=== PATIENT | male | born 1975 | race African-American/Black ===

== ENCOUNTER 2016-10-01 09:11 | Emergency (ER) | payer SELFPAY ==
[~2016-10-01] VITALS: Ht 175.3 cm; Wt 80.0 kg
[~2016-10-01 09:11] MED LIST: HYDR-3533 PO; LISI-593 PO
[2016-10-01 09:12] VITALS: BP 136/97; PULSE 60; RESP 15; TEMP 98.1; O2SAT 99
[2016-10-01] MEDS ORDERED: LISI-515 PO (09:24)
--- NOTE | 2016-10-01 09:25 | PD ---
HPI Chief Complaint: Pain: Acute or Chronic Time Seen by Provider: 09:25 Travel History International Travel<30 days: No Contact w/Intl Traveler<30days: No Traveled to known affect area: No History of Present Illness HPI 41-year-old male came to the emergency room with history of right wrist and forearm pain that has been there for past 1 year however for past 1 week it has been excruciatingly painful. He has noticed some swelling. He's been taking care of it at home by taking ibuprofen 800 mg, icing and elevating it and even bought a splint from the pharmacy and has been applying it for past 5 days. However now the pain is severe and he cannot think of anything else and hence came to the emergency room. History of fever or trauma. He does do yard work although he hasn't worked in past 5 days because of the pain. Vital signs were relatively stable. [facility] Past Medical History Narrative Medical List of his past medical, surgical, social and family history was reviewed from the nursing note. Diminished Hearing: No Gastrointestinal Disorders: Yes Genitourinary: No Hypertension: Yes Medical other: Yes (HX GI BLEEDING - 3 YRS AGO) Musculoskeletal: No Neurologic: No Reproductive: No Respiratory: No Tetanus Vaccination: > 5 Years Influenza Vaccination: No Past Surgical History Pacemaker: No Other Surgery: Yes (R. ACHILLES TENDON REPAIR AFTER RUPTURE) Social History Alcohol Use: No Tobacco Use: No Substance Use: Yes (MARIJUANA) Allergies-Medications (Allergen,Severity, Reaction): Coded Allergies: No Known Allergies (Verified , 10/01/16) Comments List of his allergies reviewed from the nursing note. Reported Meds & Prescriptions Reported Meds & Active Scripts Active Medrol Dosepak (Methylprednisolone) 4 Mg Dspk 4 Mg PO DIRECTED Per Pharmacist direction Keflex (Cephalexin) 500 Mg Cap 500 Mg PO Q8H Reported Lisinopril 20 Mg Tab 20 Mg PO DAILY Narrative Medication List of his home medications reviewed from the nursing note. Review of Systems Except as stated in HPI: all other systems reviewed are Neg Physical Exam Narrative GENERAL: Awake, alert, moderate to significant distress, severe halitosis SKIN: Focused skin assessment warm/dry. HEAD: Atraumatic. Normocephalic. EYES: Pupils equal and round. No scleral icterus. No injection or drainage. ENT: No nasal bleeding or discharge. Mucous membranes pink and moist. NECK: Trachea midline. No JVD. CARDIOVASCULAR: Regular rate and rhythm. No murmur appreciated. RESPIRATORY: No accessory muscle use. Clear to auscultation. Breath sounds equal bilaterally. GASTROINTESTINAL: Abdomen soft, non-tender, nondistended. Hepatic and splenic margins not palpable. MUSCULOSKELETAL: No obvious deformities. No clubbing. No cyanosis. No edema. Radial pulses present. Swelling at the wrist joint as well as the rest of the hand and fingers. Significant restriction of the range of motion at the wrist joint especially pronation and supination. Tenderness at the ulnar aspect of the wrist. NEUROLOGICAL: Awake and alert. No obvious cranial nerve deficits. Motor grossly within normal limits. Normal speech. PSYCHIATRIC: Appropriate mood and affect; insight and judgment normal. Data Data Last Documented VS Vital Signs Date Time Temp Pulse Resp B/P Pulse Ox O2 Delivery O2 Flow Rate FiO2 10/01/16 12:20 55 16 134/81 98 Room Air 10/01/16 09:12 98.1 Orders Wrist, Complete (Bye0dhu) (10/01/16 ) Forearm (2vws) (10/01/16 ) Acetamin-Hydrocod 325-5 Mg ([place] 5-325 (10/01/16 09:45) Ketorolac Inj (Toradol Inj) (10/01/16 09:45) Mri Joint Wrist W&W/O Contrast (10/01/16 ) Complete Blood Count With Diff (10/01/16 10:34) Basic Metabolic Panel (Bmp) (10/01/16 10:34) C-Reactive Protein (Crp) (10/01/16 10:34) Westergren Sedimentation Rate (10/01/16 10:34) ^ Saline Lock (10/01/16 10:34) Sodium Chlor 0.9% 1000 Ml Inj (Ns 1000 M (10/01/16 12:00) Cefazolin Inj (Ancef Inj) (10/01/16 12:00) Blood Culture (10/01/16 11:49) Gadodiamide Pf Inj (Omniscan Pf Inj) (10/01/16 13:27) Splint Or Brace Apply/Monitor (10/01/16 15:20) Fiberglass Splint Forearm Adul (10/01/16 ) Labs Laboratory Tests Test 10/01/16 10:50 White Blood Count 10.0 TH/MM3 Red Blood Count 4.53 MIL/MM3 Hemoglobin 12.5 GM/DL Hematocrit 36.2 % Mean Corpuscular Volume 79.8 FL Mean Corpuscular Hemoglobin 27.5 PG Mean Corpuscular Hemoglobin 34.4 % Concent Red Cell Distribution Width 13.9 % Platelet Count 160 TH/MM3 Mean Platelet Volume 9.0 FL Neutrophils (%) (Auto) 69.4 % Lymphocytes (%) (Auto) 20.5 % Monocytes (%) (Auto) 7.1 % Eosinophils (%) (Auto) 2.5 % Basophils (%) (Auto) 0.5 % Neutrophils # (Auto) 6.9 TH/MM3 Lymphocytes # (Auto) 2.1 TH/MM3 Monocytes # (Auto) 0.7 TH/MM3 Eosinophils # (Auto) 0.2 TH/MM3 Basophils # (Auto) 0.1 TH/MM3 CBC Comment DIFF FINAL Differential Comment Erythrocyte Sedimentation Rate 36 mm/hr Sodium Level 140 MEQ/L Potassium Level 4.2 MEQ/L Chloride Level 107 MEQ/L Carbon Dioxide Level 27.9 MEQ/L Anion Gap 5 MEQ/L Blood Urea Nitrogen 15 MG/DL Creatinine 1.34 MG/DL Estimat Glomerular Filtration 71 ML/MIN Rate Random Glucose 79 MG/DL Calcium Level 8.8 MG/DL C-Reactive Protein 2.68 MG/DL [facility] Medical Decision Making Medical Screen Exam Complete: Yes Emergency Medical Condition: Yes Medical Record Reviewed: Yes Differential Diagnosis Fracture, wrist joint arthritis, carpal tunnel syndrome, infection Narrative Course 10:58 AM patient was given IM pain medication. X-ray of the wrist joint and forearm was negative. Given the significance of the swelling and history of presentation I have ordered an MRI of the wrist with and without contrast. Blood test has also been ordered. Awaiting for the tests to be done and resulted. 12:04 PM blood test results of back and his sedimentation rate and CRP is elevated. Also patient has some renal insufficiency. I've ordered IV Ancef and IV fluid bolus. Currently waiting for MRI to be done and resulted. 3:21 PM MRI is done and shows diffuse tenosynovitis at the wrist joint. I have ordered an ulnar gutter splint. Patient will be discharged home on antibiotic as well. He may follow up with orthopedic. Procedures EKG Prior to Arrival: No Diagnosis Primary Impression: Right wrist tendinitis Additional Impressions: Arthritis of wrist, right Tenosynovitis of wrist Referrals: Ko Miller MD 2 days Departure Forms: Tests/Procedures, Work Release Enter return to work date: October 08, 2016 Additional Instructions: Please return to the ER if the condition worsens or any other new concerns. Keep the splint clean and dry. Follow-up with the orthopedist whose name and number been given to you. Take the medications as per the prescription direction. Med/Other Pt SpecificInfo: Prescription(s) given Scripts Methylprednisolone Dosepak (Medrol Dosepak)4 Mg Dspk4 Mg PO DIRECTED #1 DSPK Ref 0 Per Pharmacist direction Prov:Dinorah Pike MD 10/01/16 Cephalexin (Keflex)500 Mg [id number] Mg PO Q8H #30 CAP Ref 0 Prov:Dinorah Pike MD 10/01/16 Disposition: 01 DISCHARGE HOME Condition: Stable Dinorah Pike MD October 01, 2016 09:25
[2016-10-01] MEDS ORDERED: ACETAMINOPHEN/HYDROcodone 325 MG/5 MG TAB PO ONE (09:45)
[2016-10-01] MEDS ORDERED: KETOROLAC TROMETHAMINE 60 MG/2 ML (IM) VIAL IM ONE (09:45)
--- NOTE | 2016-10-01 10:19 | RADRPT ---
EXAM DATE/TIME: 10/01/2016 09:56 [facility] COMPARISON: No previous studies available for comparison. INDICATIONS : Right distal arm pain and swelling. No known injury. MEDICAL HISTORY : None. SURGICAL HISTORY : None. ENCOUNTER: Initial ACUITY: 3 months PAIN SCORE: 10/10 LOCATION: Right distal forearm FINDINGS: Two view examination of the right forearm demonstrates no evidence of fracture or dislocation. Bony mineralization is normal. The soft tissue structures are intact. CONCLUSION: Negative exam. Rashad Alcazar MD on October 01, 2016 at 10:14 Board Certified Radiologist. This report was verified electronically.
--- NOTE | 2016-10-01 10:20 | RADRPT ---
EXAM DATE/TIME: 10/01/2016 10:00 [facility] COMPARISON: No previous studies available for comparison. INDICATIONS : Right wrist pain and swelling. No known injury. MEDICAL HISTORY : None. SURGICAL HISTORY : None. ENCOUNTER: Initial ACUITY: 3 months PAIN SCORE: 10/10 LOCATION: Right wrist FINDINGS: Three view examination of the right wrist demonstrates no soft tissue swelling, dislocation, or fract ure. The carpal bones are in normal alignment. The joint spaces are maintained. Bony mineralizatio n is normal. CONCLUSION: Negative exam. Rashad Alcazar MD on October 01, 2016 at 10:17 Board Certified Radiologist. This report was verified electronically.
[2016-10-01 11:30] LABS: RED BLOOD COUNT 4.53 MIL/MM3 (4.50-5.90)
[2016-10-01 11:31] LABS: AUTOMATED NEUTROPHIL # 6.9 TH/MM3 (1.8-7.7); BASOPHIL # 0.1 TH/MM3 (0-0.2); BASOPHIL % 0.5 % (0.0-2.0); EOSINOPHIL # 0.2 TH/MM3 (0-0.4); EOSINOPHIL % 2.5 % (0.0-4.0); HEMATOCRIT 36.2 % (39.0-51.0); HEMO FLAGS DIFF FINAL; LYMPH % 20.5 % (9.0-44.0); LYMPHOCYTE # 2.1 TH/MM3 (1.0-4.8); MEAN CELL VOLUME 79.8 FL (80.0-100.0); MEAN CORPUSCULAR HEMOGLOBIN 27.5 PG (27.0-34.0); MEAN CORPUSCULAR HGB CONC 34.4 % (32.0-36.0); MONO % 7.1 % (0.0-8.0); NEUT % 69.4 % (16.0-70.0); PLATELET COUNT 160 TH/MM3 (150-450); RED CELL DISTRIBUTION WIDTH 13.9 % (11.6-17.2)
[2016-10-01 11:43] LABS: BICARBONATE 27.9 MEQ/L (21.0-32.0); POTASSIUM 4.2 MEQ/L (3.5-5.1)
[2016-10-01] MEDS ORDERED: SODIUM CHLOR 0.9% 1000 ML INJ 1,000 ML IV ONE (12:00)
[2016-10-01 12:20] VITALS: BP 134/81; PULSE 55; RESP 16; O2SAT 98
[2016-10-01] MEDS ORDERED: GADODIAMIDE PF 287 MG/ML 5 ML VIAL (for RAD MRI) IV ONE (13:27)
--- NOTE | 2016-10-01 14:56 | RADRPT ---
EXAM DATE/TIME: 10/01/2016 12:53 [facility] COMPARISON: WRIST RIGHT COMPLETE ([id number]), October 01, 2016, 10:00. INDICATIONS : Pain and swelling since last week in right wrist. NKI. Pain medial rt wrist. CONTRAST: 15 cc Omniscan (gadodiamide) IV MEDICAL HISTORY : Hypertension. SURGICAL HISTORY : Achilles tendon. ENCOUNTER: Initial ACUITY: 1 week PAIN SCORE: 5/10 LOCATION: Right wrist TECHNIQUE: Multiplanar multisequence MRI examination of the wrist was performed with and without contrast. FINDINGS: INTRISIC LIGAMENTS: The scapholunate and lunotriquetral ligaments are intact. TRIANGULAR FIBROCARTILAGE: Moderate severity globular intermediate signal within the triangular fibrocartilage at its ulnar aspe ct and ulnar attachment. No fluid-filled gap identified. TENDONS: Severe tenosynovitis of the distal extensor carpi ulnaris tendon. Medial subluxation of the extensor carpi ulnaris tendon at the ulnar styloid. Mild tendinosis of the extensor carpi ulnaris. Mild flexor digitorum tenosynovitis at the wrist. All of the other visualized tendons are intact. MARROW/CARTILAGE: Moderate severity ill-defined bony edema of the ulnar styloid and adjacent distal ulna. Globular low signal within the base of the ulnar styloid on the T2-weighted images, at the center of the bony diane a. Moderate severity focal articular cartilage thinning of the proximal pole of the hamate. Adjacent subchondral reactive bony change. Subchondral reactive bony change also noted at the distal pole of t he lunate. OTHER: Moderate sized distal radioulnar joint and radiocarpal joint effusions. POST-CONTRAST: Diffuse post contrast enhancement in the area of extensor carpi ulnaris tenosynovitis as well as the bony edema of the distal ulna. Ill-defined enhancing synovitis adjacent to ulnar aspect of EVA and ul branden styloid. CONCLUSION: 1. Prominent bony edema/bony enhancement centered at the base of the ulnar styloid with adjacent prom inent enhancing synovitis and adjacent prominent degenerative-type change/partial tear TFC. No fluid- filled gap the TFC. 2. Severe extensor carpi ulnaris tenosynovitis. Mild ECU tendinosis. Mild flexor digitorum tenosynovi tis. 3. Constellation of findings suggests possible inflammatory arthritis such as rheumatoid arthritis. Also in the differential diagnosis would be a stress injury/repetitive trauma injury. 4. 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 iNc Hernandez MD on October 01, 2016 at 14:39 Board Certified Radiologist. This report was verified electronically.
[2016-10-01] MEDS ORDERED: CEPH-460 PO (15:24)
[2016-10-01] MEDS ORDERED: MEDR4PAK PO (15:28)
== END 2016-10-01 16:13 | disposition home or self-care (01) ==
LOC: NEPD 09:11
DX: M77.9 Enthesopathy, unspecified (principal); M19.031 Primary osteoarthritis, right wrist; M65.9 Synovitis and tenosynovitis, unspecified; I10 Essential (primary) hypertension; F12.90 Cannabis use, unspecified, uncomplicated
CPT/HCPCS: 29125; 73090; 73110; 73223; 80048; 85025; 85652; 86140; 87040; 96365; 96372; 99284; A9579; J0690; J1885; J7030